=== PATIENT | female | born 1980 | race Caucasian/White ===

== ENCOUNTER 2022-08-10 07:42 | Emergency (ER) | payer MEDICAID, SELFPAY ==
[2022-08-10 07:43] VITALS: BP 131/103; PULSE 98; RESP 24; TEMP 36.1; O2SAT 99; BMI 31.9
--- NOTE | 2022-08-10 08:30 | RAD_ITS ---
STUDY: X-RAY - PELVIS AND RIGHT HIP REASON FOR EXAM: Female, 41 years old. Right hip pain following a recent fall. TECHNIQUE: 3 views of the pelvis and hip. COMPARISON: None. FINDINGS: There is a non-specific bowel gas pattern. Bilateral tubal ligation clips are seen. Normal bilateral iliac wings, sacroiliac joints and visualized sacrum. Normal bilateral superior and inferior pubic rami. There is narrowing with sclerosis of the pubic symphysis. Normal bilateral ischial tuberosities. Normal visualized femoral head. Normal acetabulum. Normal hip joint. RAD/HIP, UNI W/ Pelvis 2-3 Views IMPRESSION: No acute abnormality is seen. Narrowing and sclerosis of the the symphysis pubis. Electronically Signed: Miguelangel Abad MD at 9:11 EST ,
--- NOTE | 2022-08-10 09:23 | CT_ITS ---
STUDY: CT SCAN HIP RIGHT REASON FOR EXAM: Female, 41 years old. Injury, nml XR RADIATION DOSAGE (If Supplied By Facility): CTDIvol = ( 20.71 ) mGy, DLP = ( 615.40 ) mGycm. Individualized dose optimization techniques were used for this CT.? TECHNIQUE: Multiple axial tomographic images of the right hip joint were obtained without intravenous contrast administration. Coronal and sagittal reconstruction was obtained as well. COMPARISON: Comparison is made with prior radiographs done earlier in the day. FINDINGS: No evidence of fracture or dislocation. The inferior and superior pubic rami are unremarkable. There is sclerosis of the symphysis pubis. CT/Extremity Lower without Contra IMPRESSION: No fracture or dislocation is seen. Electronically Signed: Miguelangel Abad MD at 10:42 EST ,
--- NOTE | 2022-08-10 09:39 | ED.VIS.LOWEX ---
HPI History of Present Illness Chief Complaint: Lower Extremity Injury Informant: patient Onset/Context/Timing Onset: Days (2) Context: Sudden Onset Timing: Continuous Quality of Pain: Aching Location: R hip/groin Current Severity: Mild Maximum Severity: Severe Worsened by: WBing, moving Relieved by: rest Associated Symptoms Associated Symptoms: Negative for Parasthesia, Weakness or Loss of Funtion Narrative Narrative: Acute injury to the right hip 2 days ago. She states she was walking down some steps and was distracted by a family member, and she missed a step and basically landed on her right foot flat-footed very hard a step or 2 down on the landing/floor. She did not fall or land directly on the hip itself. However with her knee in extension and landing very firmly on her foot, she had pain in the entire right hip/groin region that continues whenever she bears weight especially. No other injury or pain. The pain does radiate down the thigh toward the knee at times. PFSH PFSH Medical History no medical history no medical history Home Medications meloxicam 15 mg tablet 15 mg PO DAILY #14 tabs 08/10/22 [Rx Last Taken Unknown] Allergy/AdvReac Type Severity Reaction Status Date / Time codeine Allergy Upset Verified 08/10/22 07:45 Stomach orange Allergy Rash Verified 08/10/22 07:45 Surgical History Hx of total knee replacement Social History Smoking Status: Never smoker ROS ROS ED Constitutional Constitutional ED: Denies chills or fever(s) Musculoskeletal Musculoskeletal: Reports extremity pain; Denies neck pain Integumentary Denies Abrasions, rash or wounds Neurologic Neurologic: Denies paresthesias or weakness EXAM Physical Exam Const Vital Signs: 08/10/22 07:43 Temperature 96.9 F L Temperature Source Temporal Pulse Rate 98 Respiratory Rate 24 H Blood Pressure 131/103 H Blood Pressure Mean 112 Pulse Ox 99 Oxygen Delivery Method Room Air Positive well nourished and well developed General Appearance ED: well developed and NAD Neck full ROM and supple Back/Spine normal ROM and normal to inspection Extremity full ROM Extremity Narrative: No deformities or shortening right lower extremity/hip. Tender throughout the proximal femur and greater trochanter on the right. No tenderness at the pelvic bony prominences including the ASIS. No obvious signs of trauma. No reproducible tenderness mid thigh or distal including the knee, lower leg, ankle, foot. Neurovascularly intact distally. Pain in the groin and right hip with logrolling and flexing the knee/thigh although she is able to do these without severe pain. Neuro oriented x3, no focal motor deficits and no sensory deficits noted Neuro Narrative: Antalgic gait but able. Sensorium / Orientation: alert Psych mental status grossly normal and thought process normal Skin no wounds Rashes: no rashes MDM MDM MDM Narrative Medical decision making narrative: Three-view x-ray series of the right hip were obtained including the pelvis, negative on my interpretation. Radiology in agreement. Patient is having pain in the joint, I suspect. Therefore I am sending her for CT scanning of the right hip for further evaluation given her normal x-rays. I reviewed the CT and agree with the radiologist interpretation that it is negative for any acute bony abnormality. Patient is able to stand up, she is able to bear weight well on the right lower extremity, stating that the pain is mostly in her proximal right thigh radiating into her groin. I do not suspect this is an occult fracture in this female who is 41 years old with a negative CT. I suspect this is musculoskeletal, soft tissues probably. I discussed follow-up with orthopedics if she does not have improvement in 1 week on meloxicam which I will prescribe her she is comfortable with that overall plan. Radiography Diagnostic Testing: Clinical Impression(s) from Imaging Studies Hip/Pelvis X-Ray 08/10/22 08:30 IMPRESSION: No acute abnormality is seen. Narrowing and sclerosis of the the symphysis pubis. Electronically Signed: Miguelangel Abad MD at 9:11 EST , Lower Extremity CT 08/10/22 09:23 IMPRESSION: No fracture or dislocation is seen. Electronically Signed: Miguelangel Abad MD at 10:42 EST , Discharge Plan Triage Chief Complaint: Lower Extremity Injury Other Complaint: Fall ED Provider: Akil White Dx/Rx/DC Orders Clinical Impression: Injury of right hip Instructions: Treating?Strains and Sprains Prescriptions: New meloxicam 15 mg tablet 15 mg PO DAILY Qty: 14 0RF Primary Care Provider: Tara Blankenship Referrals: Tara Blankenship MD [Primary Care Provider] - Noel Melendez MD [Med Staff - Active Staff] - 1-2 Weeks (If not improving with prescription and rest relatively) Disposition Disposition: Home, Self Care
== END 2022-08-10 12:01 | disposition home or self-care (01) ==
PROVIDERS: Emergency Provider Emergency Medicine; PCP Internal Medicine; Visit Provider Emergency Medicine
DX: S79.911A Unspecified injury of right hip, initial encounter (principal); X58.XXXA Exposure to other specified factors, initial encounter
CPT/HCPCS: 73502; 73700; 99282

== ENCOUNTER 2022-08-16 11:28 | Emergency (ER) | payer MEDICAID, SELFPAY ==
[2022-08-16 11:29] VITALS: BP 134/78; PULSE 82; RESP 16; TEMP 35.8; O2SAT 98; BMI 32.1
--- NOTE | 2022-08-16 11:50 | RAD_ITS ---
INDICATION: pain EXAMINATION/TECHNIQUE: X-RAY - RIGHT XR Knee Complete 4 Views or More 4 VIEWS COMPARISON: None. FINDINGS: SOFT TISSUES: There is a small joint effusion. No radiopaque foreign body. BONES/JOINTS: There are mild degenerative changes of the lateral compartment and patellofemoral articulation. There is mild lateral patellar tilt. No acute fracture or subluxation. No sclerotic or destructive changes observed. RAD/Knee 4 or More Views IMPRESSION: Small joint effusion. Lateral patellar tilt. Degenerative changes. Electronically Signed: Karol Dodge MD at 12:24 EST ,
--- NOTE | 2022-08-16 12:02 | EDS_ITS ---
HPI History of Present Illness Chief Complaint: Lower Extremity Injury Informant: patient Narrative Narrative: Nontraumatic right knee pain for the past 2 days with swelling. Woke up with symptoms reported concern for hyperextension injury. History of bilateral patellar dislocations in the past. She seen orthopedics while in [place]. Currently does not follow 1. Took ibuprofen prior to arrival. She is able to ambulate. PFSH PFSH Medical History delivery delivered Medical History no medical history Home Medications meloxicam 15 mg tablet 15 mg PO DAILY #14 tabs 08/10/22 [Rx Last Taken Unknown] Allergy/AdvReac Type Severity Reaction Status Date / Time codeine Allergy Upset Verified 08/16/22 11:30 Stomach orange Allergy Rash Verified 08/16/22 11:30 Surgical History Hx of total knee replacement S/P cholecystectomy Social History Smoking Status: Never smoker ROS ROS ED Constitutional Constitutional ED: Denies chills, fever(s) or sweats Eyes Eyes: Denies change in vision ENT ENT ED: Denies dysphagia or sore throat Cardiovascular Cardiovascular: Denies chest pain, leg edema, palpitations or racing heartbeat Respiratory/Chest Respiratory/Chest: Denies cough, dyspnea or dyspnea on exertion Gastrointestinal Gastrointestinal: Denies abdominal pain, diarrhea, nausea or vomiting Genitourinary Genitourinary ED: Denies dysuria, hematuria or urinary frequency Musculoskeletal Musculoskeletal: Reports extremity pain; Denies back pain or neck pain Integumentary Denies rash or wounds Neurologic Neurologic: Denies headache(s), paresthesias or weakness EXAM Physical Exam Const Vital Signs: 08/16/22 11:29 Temperature 96.5 F L Temperature Source Temporal Pulse Rate 82 Respiratory Rate 16 Blood Pressure 134/78 H Blood Pressure Mean 96 Pulse Ox 98 Oxygen Delivery Method Room Air Positive well nourished and well developed General Appearance ED: well developed and NAD HEENT Reports moist mucous membranes normocephalic and atraumatic Eyes PERRL, EOMs intact bilaterally and conjunctivae normal General Eye ED: Yes normal appearance of both eyes Neck no lymphadenopathy and supple General: Negative for tenderness Chest Wall Chest: Negative for tenderness Resp normal respiratory effort and normal air movement Effort and Inspection: symmetric chest movement; Negative for respiratory distress Cardio regular rate, regular rhythm and no murmurs Peripheral Pulses: pulses 2+ throughout GI normal to inspection, nondistended, normoactive bowel sounds and non-tender Palpation: Negative for guarding or rebound tenderness present Back/Spine no CVA tenderness and no thoracic nor lumbar tenderness Extremity Extremity Narrative: Right lower extremity: Negative logroll knee extensor mechanism intact there is mild suprapatellar swelling no patellar pain no dislocations. No redness or warmth. Mild pain with Conrad's. Negative varus and valgus. Neuro vas intact distally. General Extremety ED: Negative for edema or tenderness General Extremity: Negative for edema Neuro oriented x3 and no sensory deficits noted Sensorium / Orientation: awake and alert Skin no rashes or lesions noted and no wounds MDM MDM MDM Narrative Medical decision making narrative: Interventions / MDM: Differential diagnosis: Knee effusion, internal derangement with meniscus injury Diagnosis considered but do not suspect: Septic joint however there is no erythema or shoulder pain with short arc motion. My EKG interpretation: N/A Imaging independently reviewed and interpreted by myself: 4 view right knee: Small joint effusion lateral patellar tilt also read by radiology External documents reviewed: N/A Test considered but not ordered:N/A ED course: Patient declined any medications. Knee extensor mechanism intact. X-rays noted small joint effusion lateral patellar tilt. No signs of septic joint. Amadeo wrap provided. She is able to ambulate. Reports occasional catching and locking sensation discussed likely meniscus injury with inflammation. She is given follow-up with local orthopedist for outpatient evaluation she will continue NSAIDs every 6 hours for the next 2 days. All questions were answered. Re-evaluation: stable Disposition discussed with patient/family/significant other: Patient Case discussed with consulting clinician: N/A Radiography Diagnostic Testing: Clinical Impression(s) from Imaging Studies Knee X-Ray 08/16/22 11:50 IMPRESSION: Small joint effusion. Lateral patellar tilt. Degenerative changes. Electronically Signed: Karol Dodge MD at 12:24 EST , Discharge Plan Triage Chief Complaint: Lower Extremity Injury ED Provider: Anival Norwood Dx/Rx/DC Orders Clinical Impression: Swelling of joint, knee, right, Internal derangement of right knee Instructions: ED Knee Pain of Uncertain Cause, ED Knee Effusion Prescriptions: No Action meloxicam 15 mg tablet 15 mg PO DAILY Qty: 14 0RF Stand Alone Forms: ED Work / School Excuse Primary Care Provider: Tara Blankenship Referrals: Chris Ramirez DO [Med Staff - Active Staff] - 3-5 Days Tara Blankenship MD [Primary Care Provider] - Disposition Disposition: Home, Self Care Discharge Date/Time: 08/16/22 13:14
== END 2022-08-16 13:14 | disposition home or self-care (01) ==
PROVIDERS: Emergency Provider Emergency Medicine; PCP Internal Medicine; Visit Provider Emergency Medicine
DX: M79.89 Other specified soft tissue disorders (principal); M23.91 Unspecified internal derangement of right knee
CPT/HCPCS: 73564; 99282

== ENCOUNTER → 2022-09-04 | Outpatient (CLI) | payer MEDICAID, SELFPAY ==
--- NOTE | 2022-09-04 15:25 | MRI_ITS ---
STUDY: MRI RIGHT KNEE REASON FOR EXAM: Female, 41 years old. Knee pain TECHNIQUE: Standardized fat and water weighted pulse sequences were obtained in all 3 orthogonal planes. COMPARISON: X-ray 08/16/2022 FINDINGS: Normal medial meniscus. Normal hyaline cartilage of the medial femorotibial compartment. Normal medial femoral condyle and tibial plateau. Normal medial collateral ligamentous complex (MCL). Normal distal semimembranosus, gracilis and semitendinosus tendons. Normal lateral meniscus. Normal hyaline cartilage of the lateral femorotibial compartment. Normal lateral femoral condyle and tibial plateau. Normal proximal tibiofibular articulation. Normal lateral collateral (fibular) ligament. Normal popliteus tendon. Normal biceps femoris tendon. Normal anterior cruciate ligament (ACL). Normal posterior cruciate ligament (PCL). Shallow trochlear groove with lateral subluxation of patella and edema in the superolateral Hoffa''s fat pad consistent with patellofemoral maltracking. 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 Normal medial and lateral patellar retinaculum. Normal quadriceps tendon. Normal patellar tendon. Normal Hoffa''s fat pad. There is a small volume joint effusion. Mild prepatellar soft tissue swelling. The otherwise visualized osseous structures are unremarkable. 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 Electronically Signed: Omar Velazquez MD at 18:51 EDT ,
== END | disposition home or self-care (01) ==
LOC: MRI 14:41
PROVIDERS: PCP Internal Medicine; Referring Provider Orthopaedic Surgery; Visit Provider Orthopaedic Surgery
DX: M25.561 Pain in right knee (principal); M23.91 Unspecified internal derangement of right knee
CPT/HCPCS: 73721

== ENCOUNTER → 2024-08-28 | Outpatient (CLI) | payer MEDICAID, SELFPAY | END | disposition home or self-care (01) | PROVIDERS: PCP Internal Medicine; Visit Provider Internal Medicine | DX: R06.81 Apnea, not elsewhere classified (principal); R06.83 Snoring; E66.811 Obesity, class 1 | CPT/HCPCS: 95810 ==

== ENCOUNTER 2024-10-18 12:48 | Emergency (ER) | payer MEDICAID, SELFPAY ==
[2024-10-18 12:48] VITALS: BP 160/106; PULSE 105; RESP 19; TEMP 36.6; O2SAT 97
--- NOTE | 2024-10-18 13:08 | EX.ED.DYSGE1 ---
HPI History of Present Illness Chief Complaint: Lower Extremity Injury Narrative Narrative: Chief complaint and HPI: Bilateral lower extremity pain. 44-year-old female with past medical history of osteoarthritis, bilateral plantar fasciitis, bilateral peripheral neuropathy, chronic bilateral lower extremity pain presents for evaluation of bilateral lower extremity pain. Patient states that for several years she has been having pain in her bilateral lower extremities. She states it has recently worsened due to a new job and dietary. She states she is on her feet often. She states by the end of the day her pain in her bilateral lower extremities becomes severe. She states that with rest and days off it improves. She follows with her PCP for this. Recently switched from gabapentin to Lyrica. Does not follow with physical therapy. Patient states she has been working a lot lately which has increased her pain. Patient states this feels like her typical pain. She denies any fever, chills, shortness of breath, chest pain, abdominal pain, nausea, vomiting, dysuria, diarrhea, constipation. Denies any trauma or injury. Denies a history of DVT/PE, recent trauma or surgery, travel, leg swelling. Denies any neck or back pain. Denies weakness, numbness, tingling. Review of systems: See HPI Medications: As listed on the chart Allergies: As listed on the chart PFSH: Per chart Vital signs: As listed on the chart. Reviewed. Physical exam: Gen: A&O x3, uncomfortable secondary to bilateral lower extremity pain head: Normocephalic, atraumatic Eyes: No sclera icterus, conjunctiva clear, PERRL ENT: Moist mucous membranes Neck: Trachea midline, No JVD, full range of motion, nontender CV: RRR, no murmurs, no peripheral edema Resp: Lungs CTA BL, no w/r/c GI: Abd soft, non-distended, non-tender, no r/r/g Musc: Full ROM of all the extremities including the bilateral lower extremities, no deformity, no cellulitis of the lower extremity, no edema of the lower extremities, lower extremities are nontender to palpation, femoral/DP/PT pulses +2 bilaterally, good capillary refill, sensation intact, compartments soft, back nontender to palpation without bony step-offs or signs of infection Skin: Warm, dry Neuro: Alert, oriented, grossly intact, sensation intact Psych: Cooperative, appropriate mood and affect [facility] Medical History (Updated 10/18/24 @ 13:[address] Dashawn Vazquez, DO) Peripheral neuropathy Plantar fasciitis, bilateral delivery delivered Home Medications ?Medication ?Instructions ?Recorded ?Last Taken ?Type cyclobenzaprine 5 mg tablet 5 mg PO TID PRN muscle spasm 3 10/18/24 Unknown Rx days #9 tabs duloxetine 30 mg capsule,delayed 30 mg PO DAILY 10/18/24 Unknown History release liraglutide 0.6 mg/0.1 mL (18 mg/3 1.8 mg subcut Q24H 10/18/24 10/18/24 History mL) subcutaneous pen injector (Victoza 3-Lb) melatonin 1 mg chewable tablet 1 mg PO QHS 10/18/24 10/17/24 History (Kids Melatonin) pregabalin 100 mg capsule 100 mg PO BID 10/18/24 10/18/24 History rosuvastatin 5 mg tablet 5 mg PO QHS 10/18/24 10/17/24 History sitagliptin phosphate 25 mg tablet 25 mg PO DAILY 10/18/24 Unknown History (Januvia) Allergy/AdvReac Type Severity Reaction Status Date / Time codeine Allergy Upset Verified 10/18/24 12:53 Stomach orange Allergy Rash Verified 10/18/24 12:53 Surgical History S/P cholecystectomy Hx of total knee replacement Social History Smoking Status: Never smoker EXAM Physical Exam Const Vital Signs: 10/18/24 12:48 10/18/24 14:21 Temperature 97.9 F 97.9 F Temperature Source Oral Pulse Rate 105 H 87 Respiratory Rate 19 H 19 H Blood Pressure 160/106 H 130/74 H Blood Pressure Mean 124 92 Pulse Ox 97 97 Oxygen Delivery Method Room Air MDM MDM MDM Narrative Medical decision making narrative: 44-year-old female with past medical history of osteoarthritis, bilateral plantar fasciitis, bilateral peripheral neuropathy, chronic bilateral lower extremity pain presents for evaluation of bilateral lower extremity pain. Patient has had chronic bilateral lower extremity pain that has recently periodically worsened due to a new occupation where she is on her feet. Follows with PCP. Recently switched from gabapentin to Lyrica. Denies any trauma or injury. Denies any associated symptoms other than pain. Physical exam is unremarkable. Nothing to suggest infectious etiology, trauma, DVT. At this point I do not feel any emergent imaging or laboratory workup is warranted. Patient symptoms will be treated. Patient did drive to the emergency department and states that she does not want to call her fianc? for a ride therefore no narcotics or muscle relaxers will be given. Will give IM Toradol and reassess her pain. On reevaluation, patient's pain has improved. Her vitals have improved. Patient is stable to discharge home. Patient is comfortable discharging home. Will give her muscle relaxers as needed for pain. Follow-up with PCP. Recommend physical therapy. She confirmed understanding of the plan. Return precautions explained. Impression: 1. Chronic bilateral lower extremity pain Discharge Plan Triage Chief Complaint: Lower Extremity Injury ED Provider: Dashawn Vazquez Dx/Rx/DC Orders Clinical Impression: Bilateral leg pain Instructions: ED Pain, Acute, Uncertain Cause Prescriptions: New cyclobenzaprine 5 mg tablet 5 mg PO TID PRN (Reason: muscle spasm) 3 Days Qty: 9 0RF No Action rosuvastatin 5 mg tablet 5 mg PO QHS duloxetine 30 mg capsule,delayed release(DR/EC) 30 mg PO DAILY Patient Comments: pt has not started yet, due to start tomorrow pregabalin 100 mg capsule 100 mg PO BID Januvia 25 mg tablet 25 mg PO DAILY Patient Comments: starting tomorrow with duloxetine liraglutide [Victoza 3-Lb] 0.6 mg/0.1 mL (18 mg/3 mL) pen injector 1.8 mg subcut Q24H Patient Comments: took last dose today, starting duloxetine tomorrow melatonin [Kids Melatonin] 1 mg tablet,chewable 1 mg PO QHS Primary Care Provider: Tara Blankenship Referrals: Tara Blankenship MD [Primary Care Provider] - 3-5 Days Activity Restrictions/Additional Instructions: Follow-up with your primary care physician. Return back to the ED if symptoms change or worsen. You received Toradol here in the emergency department. No ibuprofen for 8 hours. Muscle relaxers can increase falls, confusion, fatigue. Do not drive or operate heavy machinery while taking them. Print Language: Colombian Disposition Disposition: Home, Self Care Discharge Date/Time: 10/18/24 14:22
[2024-10-18] MEDS: Ketorolac 30 MG/ML Syringe IM (13:25)
[2024-10-18 14:21] VITALS: BP 130/74; PULSE 87; RESP 19; TEMP 36.6; O2SAT 97
== END 2024-10-18 14:22 | disposition home or self-care (01) ==
PROVIDERS: Emergency Provider Surgery; PCP Internal Medicine; Referring Provider Surgery; Visit Provider Surgery
DX: M79.605 Pain in left leg (principal); G89.29 Other chronic pain; M79.604 Pain in right leg; Z79.899 Other long term (current) drug therapy
CPT/HCPCS: 96372; 99282

== ENCOUNTER 2024-10-23 09:58 | Emergency (ER) | payer MEDICAID, SELFPAY ==
[2024-10-23] VITALS (7 sets, daily range): BP systolic 89–172; BP diastolic 57–112; PULSE 63–117; RESP 13–19; TEMP 37–37.2; O2SAT 98–100; BMI 31.8
--- NOTE | 2024-10-23 10:52 | RAD_ITS ---
PROCEDURE: CHEST PA AND LATERAL, 10/23/2024 REASON FOR EXAM: COUGH TECHNIQUE: PA and lateral views of the chest were obtained. COMPARISON: None FINDINGS: Heart: Unremarkable. Mediastinum: Unremarkable. Lungs/pleura: No focal consolidation. No pleural effusion or visible pneumothorax. Bones: Mild radiographically evident spondylosis. Trace thoracolumbar dextroscoliosis may be positional. Lines and support devices: None. Other: RIGHT upper quadrant surgical clips. RAD/Chest PA and Lateral IMPRESSION: 1. No visible acute cardiopulmonary findings. 2. Additional description as above. Reading Location: [id number]
[2024-10-23 11:09] LABS: Absolute Lymphocyte Count 2.01 X10^3/uL (0.83-4.51); Absolute Neutrophil Count 6.3 X10^3/uL (2.0-7.7); Basophil# 0.08 X10^3/uL; Basophil% 0.9 % (0-1); Eosinophil# 0.23 X10^3/uL; Eosinophils% 2.5 % (0-5); Hematocrit 39.6 % (37-47); Hemoglobin 13.6 g/dL (12.0-15.0); Lymphocyte # 2.01 X10^3/ul (0.83-4.51); Lymphocyte % 22.1 % (19-41); Mean Corp Hgb Conc 34.3 g/dL (32-36); Mean Corpuscular Hgb 29.1 pg (27.0-32.0); Mean Corpuscular Volume 84.8 fL (81-99); Mean Platelet Vol. 10.5 fl (6.2-12.0); Monocyte# 0.42 X10^3/uL; Monocyte% 4.6 % (0-10); NRBC Flagged by Analyzer 0 % (0-5); Neutrophil # 6.32 X10^3/uL (2.7-7.7); Neutrophil % 69.4 % (47-70); Platelet Count 291 K/mm3 (150-450); RBC Distribution Width CV 12.3 % (11.6-14.6); RBC Distribution Width SD 37.2 fl (35.1-43.9); Red Blood Count 4.67 M/mm3 (4.2-5.4); White Blood Count 9.1 K/mm3 (4.4-11.0)
--- NOTE | 2024-10-23 11:18 | EX.ED.DYSGE1 ---
HPI History of Present Illness Chief Complaint: Seizure Informant: patient Narrative Narrative: Patient is a 44-year-old female with history of IBS, depression and anxiety as well as diabetes mellitus presenting for concern of elevated blood sugar and an episode of decreased responsiveness. Patient states that when she had her daughter who is 11 years old she put her health on the back burner. She notes over the past few years she has been working on getting her blood sugar/diabetes under control. She has had a lot of reaction/intolerances to diabetic medications. She states she has done very good with Victoza but due to shortages has not been able to take it regularly. She has had Januvia in the past but states she gets a lot of side effects including fogginess, cramping abdominal discomfort and headaches. Last night her blood sugar was elevated at 449 per her home monitor and she decided to go ahead and take Januvia. She notes when she woke up this morning she felt drunk and did not feel good. 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 She started to come very lightheaded and went to the break room to sat down. She started get more anxious when she checked her blood sugar it read high. This was very overwhelming to her and she started to hyperventilate. She states that she was rolling around and could hear voices but could not get herself to respond to anyone. A rapid response was called and she was brought to the emergency room. She does note for the past week or so she is been feeling off and has had an illness that was going around. She has had associated cough. She has had some intermittent nausea. She does have a history of sepsis associated with urinary tract infection. Denies any fevers. Denies any chest pain or difficulty breathing. No other complaints or concerns at this time [facility] Medical History (Updated 10/23/24 @ 14:[address] Latasha Faria, DO) Peripheral neuropathy Plantar fasciitis, bilateral delivery delivered Home Medications ?Medication ?Instructions ?Recorded ?Last Taken ?Type duloxetine 30 mg capsule,delayed 30 mg PO DAILY 10/18/24 Unknown History release liraglutide 0.6 mg/0.1 mL (18 mg/3 1.8 mg subcut Q24H 10/18/24 10/18/24 History mL) subcutaneous pen injector (Victoza 3-Lb) melatonin 1 mg chewable tablet 1 mg PO QHS 10/18/24 10/17/24 History (Kids Melatonin) pregabalin 100 mg capsule 100 mg PO BID 10/18/24 10/22/24 History rosuvastatin 5 mg tablet 5 mg PO QHS 10/18/24 10/22/24 History sitagliptin phosphate 25 mg tablet 25 mg PO DAILY 10/18/24 10/22/24 History (Januvia) Allergy/AdvReac Type Severity Reaction Status Date / Time codeine Allergy Upset Verified 10/23/24 09:59 Stomach orange Allergy Rash Verified 10/23/24 09:59 Surgical History S/P cholecystectomy Hx of total knee replacement Social History Smoking Status: Never smoker ROS ROS ED Constitutional Constitutional ED: Reports other Details: foggy ; Denies chills or fever(s) Eyes Eyes: Denies change in vision ENT ENT ED: Denies sore throat Cardiovascular Cardiovascular: Denies chest pain or palpitations Respiratory/Chest Respiratory/Chest: Denies cough or dyspnea Gastrointestinal Gastrointestinal: Reports nausea; Denies vomiting Musculoskeletal Musculoskeletal: Denies arthralgias or myalgias Integumentary Denies rash Neurologic Neurologic: Reports headache(s); Denies weakness Psychiatric Psychiatric: Reports anxiety and depression; Denies suicidal ideation or suicidal thoughts EXAM Physical Exam Const Vital Signs: 10/23/24 09:59 10/23/24 10:59 10/23/24 11:00 Temperature 98.9 F 98.6 F Temperature Source Oral Temporal Pulse Rate 117 H 85 95 Respiratory Rate 18 16 16 Blood Pressure 172/112 H 127/83 H 127/83 H Blood Pressure Mean 132 97 97 Pulse Ox 98 100 100 Oxygen Delivery Method Room Air Room Air Room Air 10/23/24 12:24 10/23/24 13:00 10/23/24 14:00 Temperature Temperature Source Pulse Rate 91 79 63 Respiratory Rate 17 19 H 13 Blood Pressure 123/92 H 89/57 L 110/59 L Blood Pressure Mean 102 67 76 Pulse Ox 99 98 98 Oxygen Delivery Method Room Air Room Air Positive well nourished and well developed General Appearance ED: well developed and NAD HEENT Reports dry mucous membranes HEENT Narrative: No tongue laceration Mouth ED: Yes dry mucous membranes Mouth: dry mucous membranes Eyes PERRL Neck supple Chest Wall inspection of chest normal and palpation of chest normal Resp normal respiratory effort and clear to auscultation bilaterally Cardio regular rhythm Rate: tachycardic GI normal to inspection, nondistended, normoactive bowel sounds and non-tender Extremity normal to inspection General Extremety ED: Negative for edema General Extremity: Negative for edema Neuro oriented x3 Sensorium / Orientation: alert Motor Exam: Negative for general weakness Psych mental status grossly normal Attitude: No agitated Mood & Affect: anxious Skin no rashes or lesions noted and no wounds MDM MDM MDM Narrative Medical decision making narrative: Patient is evaluated for elevated blood sugar, feeling foggy and headache. She had was like a panic attack while at work but was not responsive to others. A rapid response was called and she was brought here. Patient states she was conscious and could hear everyone the whole time but she had closed her eyes. There was concern that she may be had a seizure but after discussion with her does not sound like she has actually had a seizure. Differential includes infection, hyperglycemia, DKA, HH NK, RYDER and urinary tract infection. Given that she reports her blood sugar has been reading high will also add on BHB level. She has normal neurologic exam. She is afebrile. Does not any nuchal rigidity. I do not think she needs a CT of the brain or LP. She is acting appropriate and does not appear encephalopathic. CBC normal. CMP does show hyperglycemia the glucose of 452 however she has a normal anion gap. Bicarb is mildly low at 20.2. She has pseudohyponatremia with a sodium of 132 but corrected is 138 which is normal. Urinalysis not consistent with infection but does show spillage of glucose. After liter of fluid glucose is down to 241. Her BHB is normal. I do not think she requires admission for hyperglycemia. She is given Toradol for headache. Repeat evaluation she states she started to feel better. At her continuous glucose monitoring average glucose of 192. As she is downtrending I do not think she requires insulin or further glucose. She discussed that she will continue to take the Januvia despite her intolerance until she cannot get back on her Victoza. Will follow-up outpatient with primary care doctor. Is given a work note for today and tomorrow. Given return precautions. Discharged home in stable condition. Lab Data Attestation: I reviewed the patient's lab results. Labs: Laboratory Results - last 24 hr 10/23/24 10/23/24 10/23/24 10:32 11:22 13:24 WBC 9.1 RBC 4.67 Hgb 13.6 Hct 39.6 MCV 84.8 MCH 29.1 MCHC 34.3 RDW Std Deviation 37.2 RDW Coeff of Christopher 12.3 Plt Count 291 MPV 10.5 Immature Gran % (Auto) 0.500 Neut % (Auto) 69.4 Lymph % (Auto) 22.1 Kinney % (Auto) 4.6 Eos % (Auto) 2.5 Baso % (Auto) 0.9 Absolute Neuts (auto) 6.3 Absolute Lymphs (auto) 2.01 Nucleated RBC % 0 Sodium 132 L Potassium 4.1 Chloride 100 Carbon Dioxide 20.2 L Anion Gap 12 BUN 11 Creatinine 0.67 L Estim Creat Clear Calc 116.72 Est GFR (MDRD) Non-Af 110 BUN/Creatinine Ratio 15.6 Glucose 452 H* Calcium 9.2 Total Bilirubin 0.21 AST 20 ALT 21 Alkaline Phosphatase 90 Total Protein 6.8 Albumin 4.2 Globulin 2.6 Albumin/Globulin Ratio 1.6 b-Hydroxybutyric mmol/L 0.1 Urine Color Yellow Urine Clarity Clear Urine pH 6.0 Ur Specific [place] 1.020 Urine Protein 15 H Urine Glucose (UA) 1000 H Urine Ketones Negative Urine Occult Blood 10 H Urine Nitrite Negative Urine Bilirubin Negative Urine Urobilinogen Normal Ur Leukocyte Esterase Negative Urine RBC 0 SEEN Urine WBC 0 SEEN Ur Squamous Epith Cells 0-5 SEEN Urine Bacteria 0 SEEN Urine Mucus 0 SEEN POC Glucose 241 H Radiography Diagnostic Testing: Clinical Impression(s) from Imaging Studies Chest X-Ray 10/23/24 10:52 IMPRESSION: 1. No visible acute cardiopulmonary findings. 2. Additional description as above. Reading Location: [id number] Discharge Plan Triage Chief Complaint: Seizure ED Provider: Latasha Faria Dx/Rx/DC Orders Clinical Impression: Hyperglycemia due to diabetes mellitus Instructions: ED Diabetic Hyperglycemia Prescriptions: No Action rosuvastatin 5 mg tablet 5 mg PO QHS duloxetine 30 mg capsule,delayed release(DR/EC) 30 mg PO DAILY Patient Comments: pt has not started yet pregabalin 100 mg capsule 100 mg PO BID Januvia 25 mg tablet 25 mg PO DAILY liraglutide [Victoza 3-Lb] 0.6 mg/0.1 mL (18 mg/3 mL) pen injector 1.8 mg subcut Q24H Patient Comments: OUT OF STOCK AT PHARMACY melatonin [Kids Melatonin] 1 mg tablet,chewable 1 mg PO QHS Stand Alone Forms: ED Work / School Excuse Primary Care Provider: Tara Blankenship Referrals: Tara Blankenship MD [Primary Care Provider] - Activity Restrictions/Additional Instructions: Please follow-up with your primary care doctor. Your blood glucose was elevated but did improve with IV fluids today. As we discussed please continue to try and regulate take your diabetic medication to keep your blood sugar under control. Make sure you are drinking plenty of fluids and trying to adhere to a low-carb/diabetic diet. Print Language: Portuguese Disposition Disposition: Home, Self Care
[2024-10-23] MEDS: Ondansetron 4 MG/2 ML Vial IV (11:22)
[2024-10-23] MEDS: 0.9% Normal Saline (1000mL) 1,000 ML 1000 ML IV (11:22)
[2024-10-23 11:39] LABS: Bacteria 0 SEEN /hpf (None Seen); Mucous, Urine 0 SEEN /hpf (<or=2+); Red Blood Cells-Urine 0 SEEN /hpf (0-5); White Blood Cells 0 SEEN /hpf (0-5)
[2024-10-23 12:03] LABS: Color, Urine Yellow (Yellow); Glucose, Dipstick 1000 mg/dl (Normal); Ketone-Dipstick Negative (Negative); Leukocyte Esterase-Dipstick Negative /ul (Negative); Nitrite-Dipstick Negative (Negative); Occult Blood-Urine 10 /ul (Negative); Protein-Dipstick 15 mg/dl (Negative); Urine Bilirubin Dipstick Negative (Negative); Urine Clarity Clear (Clear); Urine Urobilinogen Normal (Normal)
[2024-10-23 12:09] LABS: Squamous Epithelial Cells - UA 0-5 SEEN /hpf (5-10)
[2024-10-23 12:22] LABS: BETA-HYDROXYBUTYRATE 0.1 mmol/L (0.0-0.3)
[2024-10-23 12:30] LABS: ALB/GLOB Ratio 1.6 RATIO (0.9-2.4); AST(SGOT) 20 U/L (<=31); Alanine Aminotransfer ALT/SGPT 21 U/L (<=34); Albumin, Serum 4.2 g/dL (3.5-5.0); Alkaline Phosphatase 90 U/L (35-104); Anion Gap 12 (5-15); BUN 11 mg/dL (4-19); BUN/Creat Ratio 15.6 RATIO (10-20); Calcium,Total 9.2 mg/dL (7.6-11.0); Carbon Dioxide 20.2 mmol/L (21.0-32.0); Chloride 100 mmol/L (98-108); Creatinine, Serum 0.67 mg/dL (0.70-1.20); EST Glomerular Filtration Rate 110 (>60); Estimated Creatinine Clearance 116.72 ml/min (50-250); Globulin 2.6 g/dL (2.2-4.2); Glucose 452 mg/dL (70-99); Potassium 4.1 mmol/L (3.3-5.1); Protein, Total 6.8 g/dL (5.9-8.4); Sodium Level 132 mmol/L (133-145); Total Bilirubin 0.21 mg/dL (0.00-1.30)
[2024-10-23 13:42] LABS: Bedside Glucose 241 mg/dL (74-106)
[2024-10-23] MEDS: Ketorolac 15 MG/ML Vial IV (13:48)
== END 2024-10-23 14:39 | disposition home or self-care (01) ==
PROVIDERS: Emergency Provider Emergency Medicine; PCP Internal Medicine; Visit Provider Emergency Medicine
DX: E11.65 Type 2 diabetes mellitus with hyperglycemia (principal); R56.9 Unspecified convulsions; E11.42 Type 2 diabetes mellitus with diabetic polyneuropathy; F41.9 Anxiety disorder, unspecified; R06.4 Hyperventilation; R51.9 Headache, unspecified; R11.0 Nausea; Z79.899 Other long term (current) drug therapy; F32.A Depression, unspecified
CPT/HCPCS: 71046; 80053; 81001; 82010; 82962; 85025; 96361; 96374; 96375; 99283; A4216; J2405

== ENCOUNTER 2025-03-23 08:02 | Day surgery (SDC) | payer OTHER, SELFPAY ==
--- NOTE | 2025-02-20 17:13 | PCM.HP.BLA ---
History and Physical Date of Admission: 03/15/25 HPI: The patient is a 44 year old female presenting for pre-operative visit. She is scheduled for LEEP, for high grade cervical dysplasia on 03/15/25. Procedure discussed along with risks, benefits and complications. Other alternatives discussed for management. Consent form signed? No. ? ? PAST MEDICAL HISTORY PAST MEDICAL HISTORYDiagnosisDate?Coitus painful for female??Gestational diabetes (HCC)??Headache??Kidney stones??Postcoital bleeding??Sepsis (HCC)??Uncontrolled type 2 diabetes mellitus with hyperglycemia (HCC)??Urinary tract infection? ? ? PAST SURGICAL HISTORY PAST SURGICAL HISTORYProcedureLateralityDate? DELIVERY ONLY?2012?KNEE SURGERY [id number]/2010?laprascopic?LIGATE FALLOPIAN TUBE?2013?REMOVAL GALLBLADDER?2011 ? ? ? CURRENT MEDICATIONS Current Outpatient MedicationsMedicationSigDispenseRefill?SITagliptin phosphate (JANUVIA) 25 mg tabletTake 1 tablet by mouth once daily.30 tablet1?naproxen (NAPROSYN) 500 mg tabletTake 1 tablet by mouth two times a day as needed for pain. TAKE WITH FOOD14 tablet0?Blood-Glucose Sensor ([employer] G7 SENSOR) deviApply new sensor every 10 days. Use to check blood sugars.9 each4?pregabalin (LYRICA) 100 mg capsuleTake 1 capsule by mouth two times a day for 90 days.60 capsule2?DULoxetine (CYMBALTA) 30 mg capsuleTake 1 capsule by mouth once daily.30 capsule3?ondansetron orally disintegrating (ZOFRAN ODT) 4 mg disintegrating tabletTake 1 tablet by mouth every 6 hours as needed for nausea/vomiting.30 tablet0?rosuvastatin (CRESTOR) 5 mg tabletTake 1 tablet by mouth daily at bedtime.90 tablet3?Cholecalciferol, Vitamin D3, 50 mcg (2,000 unit) capTake 2 capsules by mouth once daily.180 capsule3?Insulin [place], Disposable, (BD ULTRA-FINE ULISES PEN NEEDLE) 32 gauge x 5/321 Each once daily. Use with daily Victoza [id number] Each3?LancetsTest blood sugar(s) once daily. Dx: Uncontrolled type 2 DM with neuropathy. Insulin: no100 Each11?blood sugar diagnostic (TRUE METRIX GLUCOSE TEST STRIP) test stripUse with blood glucose test two times a day as directed. E11.65 DM with hyperglycemia. Insulin Dep? No100 Strip11?dicyclomine (BENTYL) 10 mg capsuleTake 1 capsule by mouth before meals and at bedtime. As [id number] capsule5?Blood-Glucose MeterCheck sugars as directed. E11.65 DM type 21 Each0?melatonin 10 mg tabTake 5-10 mg by mouth at bedtime as needed for for insomnia. ?No current facility-administered medications for this visit. ? ? ALLERGIES: Farxiga [Dapagliflozin], Metformin, Codeine, Jardiance [Empagliflozin], [place], and Trulicity [Dulaglutide] ? PERSONAL HISTORY: [SOCIAL HISTORY] [SOCIAL HISTORY] Social History Tobacco Use ? Smoking status: Former ? ? Current packs/day: 0.00 ? ? Types: Cigarettes ? ? Quit date: 2012 ? ? Years since quittin.6 ? Smokeless tobacco: Never Vaping Use ? Vaping status: Never Used Substance Use Topics ? Alcohol use: Yes ? ? Comment: occasionally ? Drug use: Never ? FAMILY HISTORY: FAMILY HISTORY FAMILY HISTORY ProblemRelationAge of Onset?HypertensionMother??Alzheimer's DiseaseMother??ArthritisMother??HypertensionFather??HyperlipidemiaFather??Heart [id number]?CancerFather?? leukemia?No Known ProblemsSister??No Known ProblemsBrother??CancerMaternal Grandmother??No Known ProblemsMaternal Grandfather??StrokePaternal Grandmother??Heart AttackPaternal Grandmother??DiabetesPaternal Grandmother??CancerPaternal Grandfather?? prostate?DiabetesMaternal Aunt?? from diabetic coma?CancerPaternal Aunt?? breast?DiabetesPaternal cousin??DiabetesMaternal cousin? ? ? REVIEW OF SYMPTOMS: GENERAL: denies fevers or chills ENDOCRINOLOGY: has not been on steroids Cardiology : denies palpitations or chest pain Respiratory: denies SOB or cough Hematology: denies history of prolonged bleeding or easy bruising or VTE Allergy: Denies history of personal or family history of allergy to anesthesia ? PHYSICAL EXAMINATION: ? VITALS: Last menstrual period 01/08/2025. ? GENERAL: The patient is well nourished, well hydrated in no acute distress. , The patient is oriented to time, place, and person. LUNGS: normal inspiration HEART: ? IMPRESSION: high grade cervical dysplasia ? PLAN: The risks/benefits/alternatives and personal involved for the planned LEEP of the cervix were reviewed with the patient. Her questions were answered to her satisfaction and she desires to proceed. Consent was signed. I reviewed with her postop instructions and expectations. ? ? I have reviewed and updated past medical and surgical history, medications and allergies Assessment & Plan Assessment/Plan (1) High grade squamous intraepithelial cervical dysplasia:
--- NOTE | 2025-03-21 12:26 | HP.PCM_ITS ---
History and Physical Date of Admission: 03/23/25 HPI: The patient is a 44 year old female presenting for pre-operative visit. She is scheduled for LEEP , for high grade squamous dysplasia on 03/23/25. Procedure discussed along with risks, benefits and complications. Other alternatives discussed for management. Consent form signed? Yes. ? ? PAST MEDICAL HISTORY PAST MEDICAL HISTORYDiagnosisDate?Coitus painful for female??Gestational diabetes (HCC)??Headache??Kidney stones??Postcoital bleeding??Sepsis (HCC)??Uncontrolled type 2 diabetes mellitus with hyperglycemia (HCC)??Urinary tract infection? ? ? PAST SURGICAL HISTORY PAST SURGICAL HISTORYProcedureLateralityDate? DELIVERY ONLY?2012?KNEE SURGERY [id number]/2010?laprascopic?LIGATE FALLOPIAN TUBE?2013?REMOVAL GALLBLADDER?2011 ? ? ? CURRENT MEDICATIONS Current Outpatient MedicationsMedicationSigDispenseRefill?SITagliptin phosphate (JANUVIA) 25 mg tabletTake 1 tablet by mouth once daily.30 tablet1?naproxen (NAPROSYN) 500 mg tabletTake 1 tablet by mouth two times a day as needed for pain. TAKE WITH FOOD14 tablet0?Blood-Glucose Sensor ([employer] G7 SENSOR) deviApply new sensor every 10 days. Use to check blood sugars.9 each4?pregabalin (LYRICA) 100 mg capsuleTake 1 capsule by mouth two times a day for 90 days.60 capsule2?DULoxetine (CYMBALTA) 30 mg capsuleTake 1 capsule by mouth once daily.30 capsule3?ondansetron orally disintegrating (ZOFRAN ODT) 4 mg disintegrating tabletTake 1 tablet by mouth every 6 hours as needed for nausea/vomiting.30 tablet0?rosuvastatin (CRESTOR) 5 mg tabletTake 1 tablet by mouth daily at bedtime.90 tablet3?Cholecalciferol, Vitamin D3, 50 mcg (2,000 unit) capTake 2 capsules by mouth once daily.180 capsule3?Insulin [place], Disposable, (BD ULTRA-FINE ULISES PEN NEEDLE) 32 gauge x 5/321 Each once daily. Use with daily Victoza [id number] Each3?LancetsTest blood sugar(s) once daily. Dx: Uncontrolled type 2 DM with neuropathy. Insulin: no100 Each11?blood sugar diagnostic (TRUE METRIX GLUCOSE TEST STRIP) test stripUse with blood glucose test two times a day as directed. E11.65 DM with hyperglycemia. Insulin Dep? No100 Strip11?dicyclomine (BENTYL) 10 mg capsuleTake 1 capsule by mouth before meals and at bedtime. As capsule5?Blood-Glucose MeterCheck sugars as directed. E11.65 DM type 21 Each0?melatonin 10 mg tabTake 5-10 mg by mouth at bedtime as needed for for insomnia. ?No current facility-administered medications for this visit. ? ? ALLERGIES: Farxiga [Dapagliflozin], Metformin, Codeine, Jardiance [Empagliflozin], [place], and Trulicity [Dulaglutide] ? PERSONAL HISTORY: [SOCIAL HISTORY] [SOCIAL HISTORY] Social History Tobacco Use ? Smoking status: Former ? ? Current packs/day: 0.00 ? ? Types: Cigarettes ? ? Quit date: 2012 ? ? Years since quittin.7 ? Smokeless tobacco: Never Vaping Use ? Vaping status: Never Used Substance Use Topics ? Alcohol use: Yes ? ? Comment: occasionally ? Drug use: Never ? FAMILY HISTORY: FAMILY HISTORY FAMILY HISTORY ProblemRelationAge of Onset?HypertensionMother??Alzheimer's DiseaseMother??ArthritisMother??HypertensionFather??HyperlipidemiaFather??Heart [id number]?[id number]?CancerFather?? leukemia?No Known ProblemsSister??No Known ProblemsBrother??CancerMaternal Grandmother??No Known ProblemsMaternal Grandfather??StrokePaternal Grandmother??Heart AttackPaternal Grandmother??DiabetesPaternal Grandmother??CancerPaternal Grandfather?? prostate?DiabetesMaternal Aunt?? from diabetic coma?CancerPaternal Aunt?? breast?DiabetesPaternal cousin??DiabetesMaternal cousin? ? ? REVIEW OF SYMPTOMS: GENERAL: denies fevers or chills ENDOCRINOLOGY: has not been on steroids Cardiology : denies palpitations or chest pain Respiratory: denies SOB or cough Hematology: denies history of prolonged bleeding or easy bruising or VTE Allergy: Denies history of personal or family history of allergy to anesthesia ? PHYSICAL EXAMINATION: ? VITALS: Last menstrual period 01/08/2025. ? GENERAL: The patient is well nourished, well hydrated in no acute distress. , The patient is oriented to time, place, and person. ? IMPRESSION: high grade squamous dysplasia of the cervix ? PLAN: The risks/benefits/alternatives and personal involved for the planned LEEP were reviewed with the patient. Her questions were answered to her satisfaction and she desires to proceed. To sign consent day of procedure. I reviewed with her postop instructions and expectations. ? ? I have reviewed and updated past medical and surgical history, medications and allergies Assessment & Plan Assessment/Plan (1) High grade squamous intraepithelial cervical dysplasia:
[2025-03-23] VITALS (16 sets, daily range): BP systolic 99–151; BP diastolic 54–97; PULSE 75–115; RESP 14–18; TEMP 36.5–37.2; O2SAT 92–100; BMI 31.8
--- NOTE | 2025-03-23 08:11 | PRE.ANES_ITS ---
ASA Classification* ASA Classification ASA Classification: 2 Assessment & Plan Anesthesia* Anesthesia Assessment Anesthesia Assessment: Discussed sedation and/or anesthesia options, risks, benefits, and alternatives with patient/parents/legal guardian/POA. Questions invited. The patient/parents/legal guardian/POA seems to understand and agrees to proceed with anesthesia plan. Reviewed the physical assessment, medical history, allergy history and patient home medications list prior to surgery/procedure/anesthetic and documented any changes. Performed airway and anesthesia risk assessments. Anesthesia Type Anesthesia Type: MAC Anesthesia Focused Assessment* Airway Assessment Mouth opens: >3 cm Mallampati Score: II Labs Anesthesia Preop lab: CBC WBC, (4.4-11.0) 9.1 K/mm3 10/23/24, 10:32 RBC, (4.2-5.4) 4.67 M/mm3 10/23/24, 10:32 Hgb, (12.0-15.0) 13.6 g/dL 10/23/24, 10:32 Hct, (37-47) 39.6 % 10/23/24, 10:32 Plt Count, (150-450) 291 K/mm3 10/23/24, 10:32 CHEMISTRY Potassium, (3.3-5.1) 4.1 mmol/L 10/23/24, 10:32 Sodium, (133-145) 132 mmol/L L 10/23/24, 10:32 BUN, (4-19) 11 mg/dL 10/23/24, 10:32 Creatinine, (0.70-1.20) 0.67 mg/dL L 10/23/24, 10:32 Glucose, (70-99) 452 mg/dL H* 10/23/24, 10:32 POC Glucose, (74-106) 241 mg/dL H 10/23/24, 13:24 COAG Pre-Assessment Diagnosis/Proposed Procedure Planned Operative Procedure(s): Leep Cone Anesthesia History Anesthesia History - contract designer: Anesthesia History - contract designer Hx Hospitalization No 03/05/25 10:08 Any Problems With Anesthesia No 03/05/25 10:08 Cholinesterase deficiency No 03/05/25 10:08 You/Your Family Experience No 03/05/25 10:08 fever (hyperthermia) with Relationship Recent Exposure to Contagious Disease Does patient have nerve No 03/05/25 10:08 stimulator Patient instructed to have device shut off --Does patient have Pacemaker or ICD? When Was Last Pacemaker Check QUESTION #4 FULL TEXT: You/Your Family Experience fever (hyperthermia) with Anesthesia Last Oral Intake Last Oral intake: Last Oral Intake NPO since Meds taken in AM with sips of water? Meds patient instructed to take am of surgery PONV PONV - contract designer: PONV - contract designer Female Yes 03/05/25 10:08 HX of Motion Sickness Yes 03/05/25 10:08 HX of N/V After Surgery Yes 03/05/25 10:08 Non-Smoker Yes 03/05/25 10:08 Duration of Surgery greater No 03/05/25 10:08 than 60 minutes Number of Risk Factors 4 03/05/25 10:08 PONV Score Severe Risk 03/05/25 10:08 Height & Weight Height & Weight: Anesthesia: Height & Weight Height 5 ft 5 in 10/23/24 09:59 Respiratory Assessment Respiratory Assessment - contract designer: Respiratory Tract Infection Hx - contract designer Hx Respiratory Tract Infection No 03/05/25 10:08 STOP Sleep Apnea STOP Sleep Apnea - contract designer: STOP Sleep Apnea - contract designer Hx Hypertension No 03/05/25 10:08 Hx Sleep Apnea No 03/05/25 10:08 CPAP BIPAP Do you snore loudly (louder No 03/05/25 10:08 than talking or can be heard Do you often feel tired/ No 03/05/25 10:08 fatigued/ sleepy during daytime? Has anyone observed you stop No 03/05/25 10:08 breathing during sleep? STOP Results Negative 03/05/25 10:08 QUESTION #5 FULL TEXT : Do you snore loudly (louder than talking or can be heard through closed doors)? 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 Specify any problems Hx of Preganancy in last 3 No 03/05/25 10:08 Months Nurse Filling Out Transfusion [facility] 03/05/25 10:08 & Questions: Date: 03/05/25 03/05/25 10:08 Time: 10:11 03/05/25 10:08 Patient unable to answer at this time (ie. confused, unrespo /Reproduction History /Reproductive History - contract designer: /Reproductive Hx- contract designer Hx Now No 03/05/25 10:08 Gestational Age (in weeks): EDC: Hx Hx Para Hx Section SAB No 03/05/25 10:08 Active Medications Active Medications: Current Medications Generic Name Dose Route Start Last Admin Trade Name Dianna PRN Reason Stop Dose Admin Acetaminophen 1,000 mg 03/23/25 09:35 Acetaminophen 500 Mg Tablet PO 03/23/25 09:36 PREOP ONE Ketorolac Tromethamine 30 mg 03/23/25 09:35 Ketorolac 30 Mg/Ml Syringe IV 03/23/25 09:36 PREOP ONE PFSH Medical History Wears glasses Depression Anxiety Open wound Diabetes History of renal disease Bladder disease Anemia Restless legs Migraine headache Seizures Gastric reflux Former smoker History of pain when walking Peripheral neuropathy Plantar fasciitis, bilateral delivery delivered Home Medications ?Medication ?Instructions ?Recorded ?Last Taken ?Type melatonin 1 mg chewable tablet 1 mg PO QHS 10/18/24 History (Kids Melatonin) pregabalin 100 mg capsule 100 mg PO BID 10/18/2410/22 History rosuvastatin 5 mg tablet 5 mg PO QHS 10/18/24 5 History sitagliptin phosphate 25 mg tablet 25 mg PO DAILY 09/2110/22/24 History (Januvia) Allergy/AdvReac Type Severity Reaction Status Date / Time orange Allergy Rash Verified 03/05/25 10:06 codeine AdvReac Upset Verified 03/14/25 07:57 Stomach Surgical History History of arthroscopy of left knee S/P cholecystectomy Social History Smoking Status: Former smoker Review of Systems (Anesthesia) ROS Narrative System reviewed and no additional complaints, except as documented.
[2025-03-23 08:17] LABS: Internal QC Validated? YES +Cl - CLEAR BKGD; Pregnancy, Urine Negative Negative; Record Kit Lot#,Urine Preg 0000980607
[2025-03-23] MEDS: Lactated Ringers 1,000 ML 15 ML IV (08:48)
[2025-03-23] MEDS: Ketorolac 30 MG/ML Syringe IV (08:49)
[2025-03-23 08:52] LABS: Hematocrit 44.0 % (37-47); Hemoglobin 14.8 g/dL (12.0-15.0); Mean Corp Hgb Conc 33.6 g/dL (32-36); Mean Corpuscular Volume 84.3 fL (81-99); Mean Platelet Vol. 10.0 fl (6.2-12.0); Platelet Count 282 K/mm3 (150-450); RBC Distribution Width CV 12.2 % (11.6-14.6); RBC Distribution Width SD 37.2 fl (35.1-43.9); Red Blood Count 5.22 M/mm3 (4.2-5.4); White Blood Count 9.9 K/mm3 (4.4-11.0)
--- NOTE | 2025-03-23 09:35 | CONE_PTH ---
PATIENT: ZANE [place]ARCUM [place] [facility] [id number] AGE/SX: 44/F ROOM: RE03/23/[address]: Dr. Jennyfer Pitt MD : 1980 BED: DIS: 03/23/2025 SPEC #: [id number] RECD: 03/23/25 11:22 STATUS: MAGALY REJennifer #: [id number] SATAY: 03/23/25 09:[address]: Jennyfer Pitt DEPT: SURGICAL PATHOLOGY RECD BY: Temo Segundo ENTERED: 03/23/25 13:40 SP TYPE: Leep Cone ANDRES DR: Dr. Tara Blankenship MD Tissues: A - UTERINE CERVIX LEEP B - UTERINE CERVIX LEEP C - Endocervical Procedures: Surgery Specimen Level IV Surgery Specimen Level V HEADER OPERATION: Leep cone PRE-OP DIAGNOSIS: High grade squamous intraepithelial cervical dysplasia TISSUE SUBMITTED: A- Left ectocervix incision - 12 &6, B- Right ectocervix incision - 12 &6, C- Endocervical curettings MICROSCOPIC DIAGNOSIS A. Ectocervix, left, 12 and 6 o'clock, LEEP cone biopsy: * Low grade RONN (KALE 1, mild dysplasia with HPV-cytopathic effect), margins free. * Mild hyperkeratosis. B. Ectocervix, right, 12 and 6 o'clock, LEEP cone biopsy: * Mild hyperkeratosis. * Negative for RONN. C. Endocervix, curettage: * Benign endocervical epithelium. MICROSCOPIC DESCRIPTION Slides are reviewed. GROSS DESCRIPTION Received in 3 formalin containers labeled with the patient's name and date of . Designated as: A. Left ectocervix incisions at 12 and 6 is a 2.5 x 2.0 x 1.2 cm rangel-pink, focally erythematous portion of apparent cervix, devoid of orientation. The cauterized ectocervix is inked and the specimen is serially sectioned. No definitive lesions are grossly identified. Entirely submitted in 3 cassettes. B. Right ectocervix incisions at 12 and 6 is a 2.5 x 1.3 x 1.0 cm rangel-pink, focally erythematous portion of apparent cervix, devoid of orientation. There is a minimal amount of hemorrhagic mucoid material located in an area that may represent the endocervix. The ectocervix is inked black and the possible endocervix is inked blue. It is radially sectioned. No definitive lesions are identified. Entirely submitted in 3 cassettes. C. Endocervical curettings are scant BX of red tissue, collectively measuring 1.3 x 0.7 x 0.1 cm in aggregate. Entirely submitted in 1 cassette the entirety of the specimen may not survive processing. AK 03/23/2025 CPT:[id number]
[2025-03-23] MEDS: Midazolam 2 MG/2 ML Syringe IV (09:51)
[2025-03-23] MEDS: PROPOFOL 19.77 MG IV (09:55)
[2025-03-23] MEDS: Lidocaine 1% (5 ml sdv) 5 ML Vial IV (09:55)
[2025-03-23] MEDS: Iodine/Potassium Iodide 14ML Bottle 1 DRP TOPICAL (10:03)
[2025-03-23] MEDS: Lidocaine 1% /Epi 1:100 (20ml) 20 ML Vial (10:03)
[2025-03-23] MEDS: FERRIC SUBSULFATE 8 GM SOLN (10:12)
--- NOTE | 2025-03-23 10:15 | PCM.DC ---
Discharge Instructions DC O2, CPAP, BIPAP needs Home O2 Discharge instructions: No Dressing / Incision Discharge Activity: May Not Drive (03/24/25), May Shower and May Take a Tub Bath (in 3 weeks) May resume sexual activity in: 3 weeks Lifting Restrictions: none Dressing / Incision Call your doctor if your incision/area has: Sudden Increased Bleeding and Foul Smelling Discharge (YOu may have some dark brown/black earthy smelling discharge from the medications used in surgery) Call your doctor if you observe: Fever of 101 or Higher and Using more than 1 pad per hour (for 2 hrs in a row) Follow Up Care Please Follow Up With: Jennyfer Pitt MD When: 4 weeks or as needed. Call [phone] or send a NOBOT message to make an appointment or with any concerns. Test Results: Test results from this visit will be discussed in further detail at your follow-up appointment, if applicable. Discharge Plan Admission Primary Reason for Your Visit: LEEP of the cervix Attending Provider: Jennyfer Pitt Primary Care Provider: Tara Blankenship Instructions Print Language: Citizen Of [place] Discharge Orders/Prescriptions Prescriptions: No Action rosuvastatin 5 mg tablet 5 mg PO QHS pregabalin 100 mg capsule 100 mg PO BID Januvia 25 mg tablet 25 mg PO DAILY melatonin [Kids Melatonin] 1 mg tablet,chewable 1 mg PO QHS Referrals / Follow Up: Tara Blankenship MD [Primary Care Provider, Internal Medicine] Disposition Disposition (needs filled in before D/C Order can be placed): Home, Self Care
--- NOTE | 2025-03-23 10:16 | PCM.POST.ANE ---
Anesthesia: Postop Eval I Current Vital Signs Temperature: 98.9 F Pulse Rate: 105 Blood Pressure: 124/71 Respiratory Rate: 16 Pulse Ox: 93 Assessment Airway patent: Yes Spontaneous unlabored respirations: Yes nausea: No Vomiting: No Anesthesia Complication: No Fluid Hydration Crystalloid volume administer (ml): 900 Total IV fluid infused: 900 Progress Note Anesthesia document: Postop Eval 1 completed: Yes
--- NOTE | 2025-03-23 10:18 | OP.PCM_ITS ---
Operative Report (Standard) Operative Information Date of Procedure: 03/23/25 Pre-Operative Diagnosis: High grade squamous dysplaisa of the cervix Post-Operative Diagnosis: same Surgery/Procedure Performed: LEEP w/ ECC youth services specialist: No Type of Anesthesia: MAC/Supplemental/Local RN Documented Start/Stop Times: Operation Date: 03/23/25 09:35 Case Time Into Pre-Op 03/23/25 08:15 Out of Pre-Op 03/23/25 09:48 Anesthesia Start 03/23/25 09:51 Into Room 03/23/25 09:51 Procedure Start 03/23/25 10:00 Procedure End 03/23/25 10:12 Anesthesia End 03/23/25 10:15 Out of Room 03/23/25 10:15 Procedure Start Time: 10:00 Procedure Stop Time: 10:12 Select all DRAINS/GRAFTS/IMPLANTS that apply: None Estimated Blood Loss: 10 Fluids Replaced: 900 cc LR Specimen collected: Yes Description of specimen(s) removed: ectocervix and endocervical curettings Description of surgery: The patient was taken to the operating room where she was prepped and draped in a dorsal lithotomy position. The LEEP speculum was placed in the vagina. A paracervical block was performed with 1% Xylocaine with 1-100,000 epinephrine solution. The ectocervix was amputated with the Large epstein exact cone electrode. An endocervical curettage was then performed. The specimens were handed off and labeled and sent to pathology. Hemostasis of the cervix was obtained with ball cautery. Some Monsel solution was placed over the cauterized cervix. Hemostasis was assured. The instruments were removed from the vagina. A vaginal sweep was completed by me. Sponge and needle counts were correct. Specimens: Ectocervix and endocervical curettings ectocervix incidentally divided into 2 pieces with incisions at 12 and 6:00 so they were labeled left cervix and right cervix Surgical Findings: Findings: Normal vagina, grossly normal cervix Complications Complications: No Admit VTE Documentation VTE Present on Admission: No VTE Mechan Device Prophylaxis: SCD's VTE Pharm Prophylaxis ordered?: No
--- NOTE | 2025-03-23 10:29 | POSTOPAN2_ITS ---
Anesthesia Postop Eval I Sum Postop Eval Completion status Anesthesia document: Postop Eval 1 completed: Yes Anesthesia Postop Eval I Summary Anesthesia Postop Eval I Summary: Anesthesia Postop Eval I: Assessment Summary Airway patent Yes 03/23/25 10:16 LITHOGRAPHIC ARTIST.CSIR Spontaneous unlabored Yes 03/23/25 10:16 LITHOGRAPHIC ARTIST.CSIR respirations Mental status nausea No 03/23/25 10:16 LITHOGRAPHIC ARTIST.CSIR Vomiting No 03/23/25 10:16 LITHOGRAPHIC ARTIST.CSIR Anesthesia Postop Eval I: Fluid Summary Crystalloid volume administer 900 03/23/25 10:16 LITHOGRAPHIC ARTIST.CSIR (ml) Colloids volume administered ( ml) Blood Product volume administered (ml) Total IV fluid infused 900 03/23/25 10:16 LITHOGRAPHIC ARTIST.CSIR Anesthesia Postop Eval I: Summary Notes Anesthesia Complication No 03/23/25 10:16 LITHOGRAPHIC ARTIST.CSIR Anesthesia Complication Comment: Post-operative progress note Anesthesia: Postop Eval II Evaluation Mental status: Awake Pain Level: 3 nausea: No Vomiting: No
--- NOTE | 2025-03-23 10:29 | PCM.POSTANE2 ---
Anesthesia Postop Eval I Sum Postop Eval Completion status Anesthesia document: Postop Eval 1 completed: Yes Anesthesia Postop Eval I Summary Anesthesia Postop Eval I Summary: Anesthesia Postop Eval I: Assessment Summary Airway patent Yes 03/23/25 10:16 JAI ALAI PLAYER.CSIR Spontaneous unlabored Yes 03/23/25 10:16 JAI ALAI PLAYER.CSIR respirations Mental status nausea No 03/23/25 10:16 JAI ALAI PLAYER.CSIR Vomiting No 03/23/25 10:16 JAI ALAI PLAYER.CSIR Anesthesia Postop Eval I: Fluid Summary Crystalloid volume administer 900 03/23/25 10:16 JAI ALAI PLAYER.CSIR (ml) Colloids volume administered ( ml) Blood Product volume administered (ml) Total IV fluid infused 900 03/23/25 10:16 JAI ALAI PLAYER.CSIR Anesthesia Postop Eval I: Summary Notes Anesthesia Complication No 03/23/25 10:16 JAI ALAI PLAYER.CSIR Anesthesia Complication Comment: Post-operative progress note Anesthesia: Postop Eval II Evaluation Mental status: Awake Pain Level: 3 nausea: No Vomiting: No
[2025-03-23] MEDS: Lactated Ringers 1,000 ML 75 ML IV (10:47)
== END 2025-03-23 13:22 | disposition home or self-care (01) ==
LOC: SDC 08:04 → AC 08:05
PROVIDERS: Anesthesiology; PCP Internal Medicine; Referring Provider Obstetrics & Gynecology; Visit Provider Obstetrics & Gynecology
PROC: 0UBC7ZZ Excision of Cervix, Via Natural or Artificial Opening (ICD-10-PCS; CPT 57522; principal; 2025-03-23 09:20)
DX: N87.0 Mild cervical dysplasia (principal); E11.65 Type 2 diabetes mellitus with hyperglycemia; E11.40 Type 2 diabetes mellitus with diabetic neuropathy, unspecified; Z79.4 Long term (current) use of insulin; Z87.891 Personal history of nicotine dependence; K21.9 Gastro-esophageal reflux disease without esophagitis; Z79.85 Long-term (current) use of injectable non-insulin antidiabetic drugs; Z79.899 Other long term (current) drug therapy; N88.0 Leukoplakia of cervix uteri
CPT/HCPCS: 57522; 81025; 82962; 85027; 88305; 88307; J2405